=== PATIENT | female | born 1935 | race Caucasian/White ===

== ENCOUNTER 2016-09-19 18:29 | Emergency (ER) | payer MEDICARE ==
[~2016-09-19] VITALS: Ht 167.6 cm; Wt 61.3 kg
[~2016-09-19 18:29] MED LIST: ALPRAZOLAM0.5 MG PO; AMBIEN10 MG OR; BACTRIM DS1 TAB PO; CALCIUM500 M5 PO; CIPRO500 MG OR; CITALOPRAM10 MG PO; CITALOPRAM20 MG OR; DITROPAN XL5 MG OR; DITROPAN XL5 MG PO; FLUARIX QUADRIV1 INJ IM; LEVOTHYROXIN50 MC1 OR; LEVOTHYROXIN50 MC1 PO; LOPID600 MG OR; LOPID600 MG PO; LORTAB 5 OR; LOTRISONE EX; METROCREAM0.75 % EX; MULTI VIT PO; PROZAC40 MG PO; TRIAMCINOLON0.11 EX; VITAMIN D35000 UNI1 PO
[2016-09-19 20:47] LABS: URINE BILIRUBIN - DIPSTICK NEGATIVE (NEGATIVE); URINE BLOOD DIPSTICK TRACE-INTACT (NEGATIVE); URINE CLARITY CLEAR; URINE COLOR YELLOW; URINE GLUCOSE - DIPSTICK NEGATIVE (NEGATIVE); URINE KETONE NEGATIVE (NEGATIVE); URINE NITRITE - DIPSTICK NEGATIVE (Negative); URINE PROTEIN - DIPSTICK NEGATIVE (NEG-TRACE); URINE SPECIFIC GRAVITY <=1.005; URINE UROBILINOGEN - DIPSTICK 0.2 E.U./dL (0.2)
[2016-09-19 20:48] LABS: URINE LEUK ESTERASE SMALL (NEGATIVE)
[2016-09-19 20:56] LABS: URINE BACTERIA RARE hpf; URINE SQUAMOUS EPITHELIAL CELL FEW EPI/hpf (0-FEW)
[2016-09-19] MEDS ORDERED: PYRIDIUM200 MG PO (21:27)
[2016-09-19] MEDS ORDERED: CIPROFLOXACN500 MG PO (21:27)
[2016-09-19 21:49] VITALS: BP 134/75
== END 2016-09-19 21:48 | disposition home or self-care (01) ==
LOC: ED 18:29
PROVIDERS: Emergency Medicine
DX: N39.0 Urinary tract infection, site not specified (principal); M19.90 Unspecified osteoarthritis, unspecified site; G89.29 Other chronic pain; M54.5 Low back pain; M54.2 Cervicalgia; M79.7 Fibromyalgia; Z87.440 Personal history of urinary (tract) infections

== ENCOUNTER 2018-06-08 18:25 | Emergency (ER) | payer MEDICARE ==
[~2018-06-08] VITALS: Ht 167.6 cm; Wt 64.0 kg
[~2018-06-08 18:25] MED LIST changes: +CIPROFLOXACN500 MG PO; +LEVOTHYROXIN50 MCG PO; +LEXAPRO10 MG PO; +PYRIDIUM200 MG PO; +VITAMIN D31000 UNI1 PO; -VITAMIN D35000 UNI1 PO
[2018-06-08 18:58] LABS: URINE BLOOD DIPSTICK SMALL (NEGATIVE); URINE COLOR YELLOW; URINE GLUCOSE - DIPSTICK NEGATIVE (NEGATIVE); URINE KETONE NEGATIVE (NEGATIVE); URINE PROTEIN - DIPSTICK TRACE mg/dL (NEG-TRACE); URINE SPECIFIC GRAVITY >=1.030; URINE UROBILINOGEN - DIPSTICK 0.2 E.U./dL (0.2)
[2018-06-08 19:04] LABS: URINE BILIRUBIN - DIPSTICK NEGATIVE (NEGATIVE); URINE LEUK ESTERASE SMALL (NEGATIVE); URINE NITRITE - DIPSTICK POSITIVE (Negative)
[2018-06-08 19:05] LABS: URINE BACTERIA FEW hpf; URINE SQUAMOUS EPITHELIAL CELL FEW EPI/hpf (0-FEW); URINE WBC 20-50 WBC/hpf (0-5)
[2018-06-08] MEDS ORDERED: LEVOTHYROXIN25 MC1 PO (19:12)
[2018-06-08] MEDS ORDERED: ESCITALOPRAM OX20 MG PO (19:13)
[2018-06-08] MEDS ORDERED: BACLOFEN10 MG PO (19:13)
[2018-06-08] MEDS ORDERED: LOPID600 MG PO (19:13)
[2018-06-08] MEDS ORDERED: CIPROFLOXACN500 MG PO (19:21)
[2018-06-08] MEDS ORDERED: PYRIDIUM200 MG PO (19:21)
[2018-06-08 19:28] VITALS: BP 132/81
== END 2018-06-08 19:28 | disposition home or self-care (01) ==
LOC: ED 18:25
PROVIDERS: Emergency Medicine
DX: N39.0 Urinary tract infection, site not specified (principal); B96.20 Unspecified Escherichia coli [E. coli] as the cause of diseases classified elsewhere; E03.9 Hypothyroidism, unspecified; F32.9 Major depressive disorder, single episode, unspecified; E78.00 Pure hypercholesterolemia, unspecified; Z85.3 Personal history of malignant neoplasm of breast; Z87.440 Personal history of urinary (tract) infections

== ENCOUNTER 2018-08-07 09:08 | Emergency (ER) | payer MEDICARE ==
[~2018-08-07] VITALS: Ht 167.6 cm; Wt 61.4 kg
[~2018-08-07 09:08] MED LIST changes: +BACLOFEN10 MG PO; +ESCITALOPRAM OX20 MG PO; +LEVOTHYROXIN25 MC1 PO
[2018-08-07 09:51] LABS: URINE BILIRUBIN - DIPSTICK NEGATIVE (NEGATIVE); URINE BLOOD DIPSTICK TRACE-LYSED (NEGATIVE); URINE COLOR YELLOW; URINE GLUCOSE - DIPSTICK NEGATIVE (NEGATIVE); URINE KETONE NEGATIVE (NEGATIVE); URINE NITRITE - DIPSTICK NEGATIVE (Negative); URINE PH 5.5 (4.5-8.0); URINE PROTEIN - DIPSTICK NEGATIVE (NEG-TRACE); URINE SPECIFIC GRAVITY 1.025; URINE UROBILINOGEN - DIPSTICK 0.2 E.U./dL (0.2)
[2018-08-07 09:52] LABS: URINE LEUK ESTERASE MODERATE (NEGATIVE)
[2018-08-07 09:53] LABS: URINE BACTERIA FEW hpf; URINE EPITHELIAL CELLS FEW EPI/hpf (0-FEW); URINE RBC 0-2 RBC/hpf (0-5)
[2018-08-07] MEDS ORDERED: BACTRIM DS1 TAB PO (09:57)
[2018-08-07] MEDS ORDERED: PYRIDIUM200 MG PO (09:57)
[2018-08-07 10:01] VITALS: BP 121/66
== END 2018-08-07 10:17 | disposition home or self-care (01) ==
LOC: ED 09:08
PROVIDERS: Emergency Medicine
DX: N39.0 Urinary tract infection, site not specified (principal); E03.9 Hypothyroidism, unspecified; E78.00 Pure hypercholesterolemia, unspecified; F32.9 Major depressive disorder, single episode, unspecified; B96.20 Unspecified Escherichia coli [E. coli] as the cause of diseases classified elsewhere; Z87.440 Personal history of urinary (tract) infections

== ENCOUNTER → 2018-08-24 | Outpatient (REF) | payer MEDICARE | END | disposition home or self-care (01) | LOC: BD 09:02 | PROVIDERS: ATTEND Nurse Practitioner Adult Health | DX: N95.1 Menopausal and female climacteric states (principal) ==

== ENCOUNTER 2020-02-06 06:16 | Day surgery (SDC) | payer MEDICARE ==
[~2020-02-06 06:16] MED LIST changes: +CITALOPRAM20 M1 PO; -ESCITALOPRAM OX20 MG PO
[2020-02-06 10:00] VITALS: BP 135/63
== END 2020-02-06 10:18 | disposition home or self-care (01) ==
LOC: ENDO 06:16 → ORM 08:00 → ENDO 08:00
PROVIDERS: ATTEND Surgery
PROC: 0DBL8ZX Excision of Transverse Colon, Via Natural or Artificial Opening Endoscopic, Diagnostic (ICD-10-PCS; principal; 2020-02-06)
PROC: 3E0H8GC Introduction of Other Therapeutic Substance into Lower GI, Via Natural or Artificial Opening Endoscopic (ICD-10-PCS; 2020-02-06)
DX: D12.3 Benign neoplasm of transverse colon (principal); K57.30 Diverticulosis of large intestine without perforation or abscess without bleeding; K64.4 Residual hemorrhoidal skin tags; K64.8 Other hemorrhoids; Z86.010 Personal history of colon polyps; Z11.59 Encounter for screening for other viral diseases

== ENCOUNTER 2020-07-30 07:02 | Day surgery (SDC) | payer MEDICARE ==
[~2020-07-30] VITALS: Ht 167.6 cm; Wt 56.7 kg
[~2020-07-30 07:02] MED LIST changes: -CITALOPRAM20 M1 PO; +VITAMIN C1000 MG PO
[2020-07-30 11:22] VITALS: BP 132/63
== END 2020-07-30 11:05 | disposition home or self-care (01) ==
LOC: ENDO 07:02 → ORM 08:45 → ENDO 11:05
PROVIDERS: ATTEND Surgery
PROC: 0DBL8ZX Excision of Transverse Colon, Via Natural or Artificial Opening Endoscopic, Diagnostic (ICD-10-PCS; principal; 2020-07-30)
PROC: 0DBN8ZX Excision of Sigmoid Colon, Via Natural or Artificial Opening Endoscopic, Diagnostic (ICD-10-PCS; 2020-07-30)
PROC: 3E0H8KZ Introduction of Other Diagnostic Substance into Lower GI, Via Natural or Artificial Opening Endoscopic (ICD-10-PCS; 2020-07-30)
DX: D12.3 Benign neoplasm of transverse colon (principal); K63.5 Polyp of colon; K57.30 Diverticulosis of large intestine without perforation or abscess without bleeding; K64.4 Residual hemorrhoidal skin tags; Z85.3 Personal history of malignant neoplasm of breast; Z20.822 Contact with and (suspected) exposure to COVID-19

== ENCOUNTER 2020-08-22 13:22 | Emergency (ER) | payer MEDICARE ==
[~2020-08-22] VITALS: Ht 167.6 cm; Wt 55.9 kg
[2020-08-22 15:00] LABS: HEMATOCRIT 40.6 % (37.0-47.0); HEMOGLOBIN 13.3 g/dl (12.0-16.0); IMMATURE GRANULOCYTES 0.4 % (0.0-5.0); MEAN CORPUSCULAR HGB 31.4 pG CALC (26.0-32.0); MEAN CORPUSCULAR HGB CONC 32.8 g/dL CAL (32.0-36.0); NEUT# 4.5 thou/uL (2.00-7.15); RED BLOOD COUNT 4.23 mill/uL (4.20-5.60); RED CELL DISTRI WIDTH 13.1 % (11.5-15.5)
[2020-08-22 15:01] LABS: URINE BILIRUBIN - DIPSTICK NEGATIVE (NEGATIVE); URINE BLOOD DIPSTICK NEGATIVE (NEGATIVE); URINE COLOR YELLOW; URINE GLUCOSE - DIPSTICK NEGATIVE (NEGATIVE); URINE KETONE NEGATIVE (NEGATIVE); URINE LEUK ESTERASE NEGATIVE (NEGATIVE); URINE NITRITE - DIPSTICK NEGATIVE (Negative); URINE PH 5.5 (4.5-8.0); URINE PROTEIN - DIPSTICK NEGATIVE (NEG-TRACE); URINE SPECIFIC GRAVITY 1.025; URINE UROBILINOGEN - DIPSTICK 0.2 E.U./dL (0.2)
[2020-08-22 15:14] LABS: ALBUMIN 4.6 g/dL (3.2-5.0); ALKALINE PHOSPHATASE 86 u/l (38-126); AMYLASE 82 u/l (30-110); ANION GAP 11 (6-22 (CALC)); BILIRUBIN, TOTAL 0.7 mg/dL (0.0-1.4); BUN 19 mg/dL (8-23); BUN/CREATININE RATIO 30 (12-20 (CALC)); CARBON DIOXIDE 28 mmol/l (22-30); CHLORIDE 103 mmol/l (95-108); CREATININE 0.6 mg/dL (0.5-1.0); GFR > 60 ML/MIN (>=60 (CALC)); GFR FOR AFR.AMER. > 60 ML/MIN (>=60 (CALC)); LIPASE 154 u/l (23-300); MAGNESIUM 2.1 mg/dL (1.6-2.3); POTASSIUM 3.6 mmol/l (3.5-5.1); SGOT/AST 27 u/l (9-36); SODIUM 138 mmol/l (137-146); TOTAL PROTEIN 7.8 g/dL (6.3-8.2)
[2020-08-22 15:25] LABS: ACT PARTIAL THROMBO TIME 22.5 SECONDS (20.0-32.5); PROTHROMBIN TIME 9.8 SECONDS (9.0-12.5)
[2020-08-22] MEDS ORDERED: IMODIUM2 MG PO (17:47)
[2020-08-22 17:54] VITALS: BP 149/71
== END 2020-08-22 18:00 | disposition home or self-care (01) ==
LOC: ED 13:22
DX: R19.7 Diarrhea, unspecified (principal); R10.31 Right lower quadrant pain; R94.31 Abnormal electrocardiogram [ECG] [EKG]; Z87.440 Personal history of urinary (tract) infections; T36.8X6A Underdosing of other systemic antibiotics, initial encounter; Z91.128 Patient's intentional underdosing of medication regimen for other reason
CPT/HCPCS: Q9967

== ENCOUNTER 2020-11-05 07:10 | Day surgery (SDC) | payer MEDICARE ==
[2020-11-05] VITALS (14 sets, daily range): BP systolic 87–127; BP diastolic 42–70
[~2020-11-05] VITALS: Ht 167.6 cm; Wt 54.0 kg
[~2020-11-05 07:10] MED LIST changes: +IMODIUM2 MG PO
--- NOTE | 2020-11-05 10:28 | NUR ---
PT ARRIVED TO ICU BED 1 VIA HOSPITAL BED ACCOMPANIED BY ANNETTERN AND POLLY MOORE;PT A&0 X3, ORIENTED TO ROOM AND CALL LIGHT SYSTEM;WT AND VS OBTAINED AT THIS TIME;PT ADMITTED FROM OR AFTER UNSUCCESSFUL INTUBATION, ADMITTED FOR OBSERVATION;PT DENIES ANY CURRENT PAIN BUT DOES REPORT NECK STIFFNESS, PAIN SCALE AND REPORTING EDUCATED;RESPIRATIONS EVEN AND UNLABORED ON O2 @ 3L HUMIDIFIED OXYGEN,CLEAR LUNG SOUNDS;NON-PRODUCTIVE COUGH NOTED;ABDOMEN SOFT ON PALPATION AND ACTIVE IN ALL 4 QUADRANTS,LAST BM 11/04/20;WEAK PEDAL PULSES;SKIN INTACT;CARDIAC MONITORING IN PLACE;#20G TO LAC INFUSING LR @ 75ML/HR,SITE APPEARS HEALTHY;SCD'S APPLIED;ALLERGY AND FALL BAND IN PLACE;PT DENIES ANY ADDITIONAL NEEDS AND IS ENCOURAGED TO CALL FOR ASSISTANCE IF NEEDED;FALL PRECAUTIONS IN PLACE WITH BED IN THE LOWEST POSITION AND CALL LIGHT IN REACH;WILL CONTINUE TO MONITOR
--- NOTE | 2020-11-05 11:01 | NUR ---
AT BEDSIDE DISCUSSING POC.
--- NOTE | 2020-11-05 12:50 | NUR ---
PT RESTING IN SEMI FOWLERS POSITION EATING LUNCH;RESPIRATIONS REMAIN EVEN AND UNLABORED ON RA;PT DENIES ANY CURRENT PAIN OR DISCOMFORTS;CARDIAC MONITORING IN PLACE;IV SITE PATENT INFUSING D5 1/2 NS @ 75ML/HR,SITE APPEARS HEALTHY;PT DENIES ANY ADDITIONAL NEEDS AND IS ENCOURAGED TO CALL FOR ASSISTANCE IF NEEDED;FALL PRECAUTIONS IN PLACE WITH BED IN THE LOWEST POSITION AND CALL LIGHT IN REACH;WILL CONTINUE TO MONITOR
--- NOTE | 2020-11-05 15:00 | NUR ---
PT RESTING IN SEMI FOWLERS POSITION;RESPIRATIONS EVEN AND UNLABORED ON RA;PT DENIES ANY CURRENT PAIN OR DISCOMFORTS;CARDIAC MONITORING IN PLACE SB 50'S;IV SITE PATENT INFUSING IVF WITH EASE PER ORDER;PT DENIES ANY ADDITIONAL NEEDS AND IS ENCOURAGED TO CALL FOR ASSISTANCE IF NEEDED;FALL PRECAUTIONS IN PLACE WITH CALL LIGHT IN REACH;WILL CONTINUE TO MONITOR
--- NOTE | 2020-11-05 18:00 | NUR ---
PT RESTING IN SEMI FOWLERS POSITION WATCHING TV;RESPIRATIONS EVEN AND UNLABORED ON RA;PT DENIES ANY CURRENT PAIN OR NEEDS;IV SITE PATENT;CARDIAC MONITORING IN PLACE AND VS REMAIN WNL;PT ENCOURAGED TO CALL FOR ASSISTANCE IF NEEDED;CALL LIGHT IN REACH;WILL CONTINUE TO MONITOR
--- NOTE | 2020-11-05 20:00 | NUR ---
[id number]: PATIENT IS AWAKE, ORIENTED X4, LAYS IN HIGH JUSTIN'S. NO ACUTE DISTRESS SHOWN. NURSE ASSESSMENT COMPLETED. NO COMPLAINTS OF PAIN. POC DISCUSSED. PATIENT ABLE TO WALK TO RESTROOM WITH STANDBY ASSIST, WASHED HER TEETH COMBED HER HAIR, APPLIED MOISTURIZER TO FACE, AND VOIDED YELLOW/CLEAR. REPLACED DRESSING TO LAC IV DUE TO BLOOD NOTED, IV IS INTACT, FLUSHES PROPERLY. PROVIDED ICED WATER. SR/ SB ON TELEMETRY. BP WNL, AFEBRILE, O2 SAT GREATER THAN 95%, PATIENT DENIES ANY SOB, NO RESPIRATORY DISTRESS NOTED. WATCHES TV. EDUCATED ON IS, PATIENT ABLE TO PROPERLY USE IT. CALL LIGHT WITHIN REACH.
--- NOTE | 2020-11-05 22:07 | NUR ---
PATIENT TOLERATES LOVENOX INJECTION. NO ACUTE DISTRESS SHOWN. NO COMPLAINTS OR NEEDS AT THIS TIME. BLANKET PROVIDED. SCD'S TAKEN OFF PER REQUEST. CALL LIGHT WITHIN REACH.
[2020-11-06] VITALS (11 sets, daily range): BP systolic 83–118; BP diastolic 41–77
--- NOTE | 2020-11-06 01:51 | NUR ---
PATIENT SLEEPS, NO ACUTE DISTRESS SHOWN. CALL LIGHT WITHIN REACH.
--- NOTE | 2020-11-06 05:48 | NUR ---
PATIENT LAYS IN HIGH JUSTIN'S, IS AWAKE, NO ACUTE DISTRES SHOWN. CALL LIGHT WITHIN REACH.
--- NOTE | 2020-11-06 07:47 | NUR ---
PT RESTING COMFORTABLY WITH EYES CLOSED. NO SIGNS OF DISTRESS AT THIS TIME. WILL REASSESS IN ONE HOUR.
--- NOTE | 2020-11-06 09:49 | NUR ---
RX FOR MAGIC MOUTHWASH CALLED IN TO [facility]. LIDOCAINE/MAALOX/BENADRYL 1:1:1 120ML TOTAL DIRECTIONS SWISH/SWALLOW 5ML Q6H PRN PER DR FOUNTAIN
[2020-12-23] MEDS ORDERED: MIRACLEMM PO (11:37)
== END 2020-11-06 11:38 | disposition home or self-care (01) ==
LOC: ORM 07:10 → ICU 10:24 → ORM 11-06 11:38
PROVIDERS: ATTEND Surgery
DX: D12.3 Benign neoplasm of transverse colon (principal); E03.9 Hypothyroidism, unspecified; J39.2 Other diseases of pharynx; J02.9 Acute pharyngitis, unspecified; Y84.8 Other medical procedures as the cause of abnormal reaction of the patient, or of later complication, without mention of misadventure at the time of the procedure; Y92.234 Operating room of hospital as the place of occurrence of the external cause; Z85.3 Personal history of malignant neoplasm of breast; Z53.09 Procedure and treatment not carried out because of other contraindication
CPT/HCPCS: J0131; J1100; J1650

== ENCOUNTER 2021-12-02 13:24 | Emergency (ER) | payer MEDICARE ==
[2021-12-02] VITALS (10 sets, daily range): BP systolic 104–131; BP diastolic 57–70
[~2021-12-02] VITALS: Ht 167.6 cm; Wt 59.0 kg
[~2021-12-02 13:24] MED LIST changes: +MIRACLEMM PO
[2021-12-02 14:54] LABS: HEMATOCRIT 42.6 % (37.0-47.0); HEMOGLOBIN 13.8 g/dl (12.0-16.0); IMMATURE GRANULOCYTES 0.1 % (0.0-5.0); MEAN CELL VOLUME 96.4 fL CALC (80.0-100.0); MEAN CORPUSCULAR HGB 31.2 pG CALC (26.0-32.0); MEAN CORPUSCULAR HGB CONC 32.4 g/dL CAL (32.0-36.0); NEUT# 6.61 thou/uL (2.00-7.15); RED BLOOD COUNT 4.42 mill/uL (4.20-5.60)
[2021-12-02 15:04] LABS: URINE BLOOD DIPSTICK LARGE (NEGATIVE); URINE COLOR ORANGE; URINE GLUCOSE - DIPSTICK 100 mg/dL (NEGATIVE); URINE KETONE 15 mg/dL (NEGATIVE); URINE PH 5.5 (4.5-8.0); URINE PROTEIN - DIPSTICK >=300 mg/dL (NEG-TRACE); URINE SPECIFIC GRAVITY >=1.030
[2021-12-02 15:09] LABS: URINE BILIRUBIN - DIPSTICK MODERATE (NEGATIVE); URINE EPITHELIAL CELLS MODERATE EPI/hpf (0-FEW); URINE LEUK ESTERASE MODERATE (NEGATIVE); URINE NITRITE - DIPSTICK POSITIVE (Negative); URINE RBC 25-50 RBC/hpf (0-5); URINE WBC 50-100 WBC/hpf (0-5)
[2021-12-02 15:10] LABS: URINE BACTERIA MANY hpf
[2021-12-02 16:59] LABS: GFR FOR AFR.AMER. > 60 ML/MIN (>=60 (CALC)); GFR OTHER RACES > 60 ML/MIN (>=60 (CALC))
[2021-12-02 18:23] LABS: ALBUMIN 4.3 g/dL (3.2-5.0); ALKALINE PHOSPHATASE 82 u/l (38-126); ANION GAP 10 (6-22 (CALC)); BUN 18 mg/dL (8-23); BUN/CREATININE RATIO 24 (12-20 (CALC)); CARBON DIOXIDE 29 mmol/l (22-30); CHLORIDE 105 mmol/l (95-108); CREATININE 0.7 mg/dL (0.5-1.0); GFR FOR AFR.AMER. > 60 ML/MIN (>=60 (CALC)); GFR OTHER RACES > 60 ML/MIN (>=60 (CALC)); LIPASE 126 u/l (23-300); POTASSIUM 3.9 mmol/l (3.5-5.1); SGOT/AST 25 u/l (9-36); SODIUM 140 mmol/l (137-146); TOTAL PROTEIN 7.2 g/dL (6.3-8.2)
[2021-12-02 18:27] LABS: BILIRUBIN, TOTAL 0.5 mg/dL (0.0-1.4)
[2021-12-02] MEDS ORDERED: PYRIDIUM200 MG PO (18:39)
[2021-12-02] MEDS ORDERED: KEFLEX500 MG PO (18:39)
== END 2021-12-02 18:58 | disposition home or self-care (01) ==
LOC: ED 13:24
PROVIDERS: Nurse Practitioner
DX: N39.0 Urinary tract infection, site not specified (principal); R19.7 Diarrhea, unspecified; F41.9 Anxiety disorder, unspecified; F32.A Depression, unspecified; B96.20 Unspecified Escherichia coli [E. coli] as the cause of diseases classified elsewhere
CPT/HCPCS: Q9967

== ENCOUNTER 2022-03-23 12:37 | Inpatient (IN) | payer MEDICARE ==
[2022-03-23] VITALS (20 sets, daily range): BP systolic 114–162; BP diastolic 52–88
[~2022-03-23] VITALS: Ht 30.5 cm; Wt 75.0 kg
[~2022-03-23 12:37] MED LIST changes: +KEFLEX500 MG PO
--- NOTE | 2022-03-23 12:44 | NUR ---
PT TO ROOM VIA EMS
[2022-03-23 13:09] LABS: HEMATOCRIT 44.2 % (37.0-47.0); HEMOGLOBIN 14.7 g/dl (12.0-16.0); IMMATURE GRANULOCYTES 0.1 % (0.0-5.0); MEAN CELL VOLUME 95.7 fL CALC (80.0-100.0); MEAN CORPUSCULAR HGB 31.8 pG CALC (26.0-32.0); MEAN CORPUSCULAR HGB CONC 33.3 g/dL CAL (32.0-36.0); NEUT# 12.08 thou/uL (2.00-7.15); RED BLOOD COUNT 4.62 mill/uL (4.20-5.60); RED CELL DISTRI WIDTH 13.8 % (11.5-15.5)
--- NOTE | 2022-03-23 13:12 | NUR ---
PATIENT BROUGHT IN BY EMS , THEY STATES SHE LIVES ALONE AND WAS FOUND BY HER NEIGHBOR ON THE FLOOR NEXT TO HER BED . lAST TIME THE NEIGHBOR SAW HER WAS WEDNESDAY. nO BRUISES OR INJURIES NOTED. pT APPEARED ALTERED MENTALLY , CONFUSED . VITALS STABLE . pt HAS A DNR
[2022-03-23 13:26] LABS: ALBUMIN 4.7 g/dL (3.2-5.0); CREATININE 1.2 mg/dL (0.5-1.0); POTASSIUM 3.8 mmol/l (3.5-5.1)
[2022-03-23 13:27] LABS: URINE BLOOD DIPSTICK MODERATE (NEGATIVE); URINE COLOR YELLOW; URINE GLUCOSE - DIPSTICK NEGATIVE (NEGATIVE); URINE KETONE >=80 mg/dL (NEGATIVE); URINE PROTEIN - DIPSTICK TRACE mg/dL (NEG-TRACE); URINE SPECIFIC GRAVITY 1.025; URINE UROBILINOGEN - DIPSTICK 0.2 E.U./dL (0.2)
[2022-03-23 13:29] LABS: URINE BILIRUBIN - DIPSTICK MODERATE (NEGATIVE); URINE LEUK ESTERASE SMALL (NEGATIVE); URINE NITRITE - DIPSTICK NEGATIVE (Negative)
[2022-03-23 13:34] LABS: BILIRUBIN, TOTAL 0.8 mg/dL (0.0-1.4); TOTAL PROTEIN 8.5 g/dL (6.3-8.2)
[2022-03-23 13:37] LABS: URINE SQUAMOUS EPITHELIAL CELL FEW EPI/hpf (0-FEW)
--- NOTE | 2022-03-23 14:02 | NUR ---
STRAIGHT CATH WAS DONE TO COLLECT URINE AND PT WAS PLACED ON A PURE WICK
--- NOTE | 2022-03-23 14:59 | NUR ---
PATIENT CAME BACK FROM CT , APPEAR CONFUSED, THE THING SHE IS SAYING ARE NOT REALLY COMPREHENSIBLE
--- NOTE | 2022-03-23 16:58 | NUR ---
PATIENT HAD A PRESSURE ULCER STAGE 1 IN THE LOWER BACK
--- NOTE | 2022-03-23 17:05 | NUR ---
1650 86 YEAR OLD FEMALE RECEIVRD TODAY FROM THE ED TO [facility] , FOR URINARY RETENTION. PT ARRIVES VIA STRETCHER ALERT ORIENTED TO HERSELF ONLY , PLAISANTLY CONFUSED,DENIES ANY PAIN OR DISCOMFORT , VSS NO SIGNS OF DITRESS NOTED AT THIS TIME FALL PRECAUTION INITIATED AND ONGOING, CONTINUE TO MONITOR PATIENT.
[2022-03-24] VITALS (8 sets, daily range): BP systolic 106–121; BP diastolic 45–56
[2022-03-24 05:05] LABS: MEAN CELL VOLUME 97.5 fL CALC (80.0-100.0); MEAN CORPUSCULAR HGB 31.8 pG CALC (26.0-32.0); MEAN CORPUSCULAR HGB CONC 32.6 g/dL CAL (32.0-36.0); RED BLOOD COUNT 3.62 mill/uL (4.20-5.60); RED CELL DISTRI WIDTH 14.1 % (11.5-15.5)
[2022-03-24 05:14] LABS: HEMATOCRIT 35.3 % (37.0-47.0); HEMOGLOBIN 11.5 g/dl (12.0-16.0)
[2022-03-24 05:24] LABS: ANION GAP 14 (6-22 (CALC)); BUN 33 mg/dL (8-23); BUN/CREATININE RATIO 46 (12-20 (CALC)); CHLORIDE 122 mmol/l (95-108); CREATININE 0.7 mg/dL (0.5-1.0); GFR FOR AFR.AMER. > 60 ML/MIN (>=60 (CALC)); GFR OTHER RACES > 60 ML/MIN (>=60 (CALC)); MAGNESIUM 2.4 mg/dL (1.6-2.3); POTASSIUM 3.6 mmol/l (3.5-5.1); SODIUM 151 mmol/l (137-146)
[2022-03-24 05:26] LABS: CARBON DIOXIDE 19 mmol/l (22-30)
[2022-03-24 09:18] LABS: SGOT/AST 68 u/l (9-36)
--- NOTE | 2022-03-24 22:10 | NUR ---
2000: Patient is more awake and alert today compare to yesterday she was very confused and desoriented. Patient denies any s/s of discomfort. rodriguez catheter in place and patent draining yellow urine. IVF infusing per order. will continue to monitor.
[2022-03-25 03:55] VITALS: BP 121/65
[2022-03-25 04:00] VITALS: BP 121/65
[2022-03-25 05:18] LABS: HEMATOCRIT 33.4 % (37.0-47.0); IMMATURE GRANULOCYTES 0.2 % (0.0-5.0); MEAN CELL VOLUME 95.7 fL CALC (80.0-100.0); MEAN CORPUSCULAR HGB 31.5 pG CALC (26.0-32.0); MEAN CORPUSCULAR HGB CONC 32.9 g/dL CAL (32.0-36.0); NEUT# 3.49 thou/uL (2.00-7.15); RED BLOOD COUNT 3.49 mill/uL (4.20-5.60)
[2022-03-25 05:35] LABS: BUN 19 mg/dL (8-23); BUN/CREATININE RATIO 31 (12-20 (CALC)); CHLORIDE 114 mmol/l (95-108); CPK 348 u/l (30-165); CREATININE 0.6 mg/dL (0.5-1.0); GFR FOR AFR.AMER. > 60 ML/MIN (>=60 (CALC)); GFR OTHER RACES > 60 ML/MIN (>=60 (CALC)); POTASSIUM 3.1 mmol/l (3.5-5.1); SODIUM 144 mmol/l (137-146)
[2022-03-25 05:37] LABS: ANION GAP 9 (6-22 (CALC)); CARBON DIOXIDE 24 mmol/l (22-30)
[2022-03-25 11:23] VITALS: BP 120/62
[2022-03-25 17:04] VITALS: BP 129/68
--- NOTE | 2022-03-25 19:15 | NUR ---
PT IN BED, LAYING ON RIGHT SIDE. PT ALERT AND ORIENTATED X3. BREATHING EVEN AND NON-LABORED, NO OXYGEN IN PLACE. PT ALERT AND ORIENTATED X3. ABDOMEN NON DISTENDED, SOFT WITH ACTIVE BOWEL SOUNDS X4. REPORTED MULTIPLE BOWEL MOVEMENTS DURING DAY SHIFT. IV SITE APPEARS HEALTHY, FLUSHES WELL, NO REPORTED PAIN. STAGE 1 P[RESSURE ULCER ON LOWER BACK, IN REPORT WAS TOLD IT WAS PRESENT AT ADMISSION. PT DENIES PAIN OR ANY NEEDS AT THIS TIME. CALL LUGT IN REACH AT THIS TIME, ALL SAFETY PRECAUTIONS IN PLACE AT THIS TIME.
[2022-03-25 19:39] VITALS: BP 125/60
[2022-03-26 00:11] VITALS: BP 126/69
--- NOTE | 2022-03-26 00:30 | NUR ---
PT SLEEPING IN ROOM. BREATHING REMAINS THE SAME. PT DENIES ANY NEEDS AT THIS TIME. CALL LIGHT IN REACH, ALL SAFETY PRECAUTIONS IN PLACE AT THIS TIME.
[2022-03-26 04:14] VITALS: BP 142/79
--- NOTE | 2022-03-26 04:43 | NUR ---
PT SLEEPING IN BED. BREATHING REMAINS THE SAME. IV SITE APPEARS HEALTHY. PT DENIES ANY NEEDS AT THIS TIME. CALL LIGHT IN REACH, ALL SAFETY PRECAUTIONS IN PLACE AT THIS TIME.
[2022-03-26 06:21] LABS: HEMATOCRIT 34.3 % (37.0-47.0); HEMOGLOBIN 11.6 g/dl (12.0-16.0); IMMATURE GRANULOCYTES 0.3 % (0.0-5.0); MEAN CORPUSCULAR HGB 32.1 pG CALC (26.0-32.0); MEAN CORPUSCULAR HGB CONC 33.8 g/dL CAL (32.0-36.0); NEUT# 3.44 thou/uL (2.00-7.15); RED BLOOD COUNT 3.61 mill/uL (4.20-5.60); RED CELL DISTRI WIDTH 13.6 % (11.5-15.5)
[2022-03-26 06:35] LABS: ANION GAP 10 (6-22 (CALC)); BUN 13 mg/dL (8-23); BUN/CREATININE RATIO 24 (12-20 (CALC)); CARBON DIOXIDE 25 mmol/l (22-30); CHLORIDE 110 mmol/l (95-108); CREATININE 0.5 mg/dL (0.5-1.0); GFR FOR AFR.AMER. > 60 ML/MIN (>=60 (CALC)); GFR OTHER RACES > 60 ML/MIN (>=60 (CALC)); POTASSIUM 3.1 mmol/l (3.5-5.1); SODIUM 141 mmol/l (137-146)
[2022-03-26 06:44] VITALS: BP 141/75
--- NOTE | 2022-03-26 08:41 | NUR ---
PT RESTING IN HIGH FOWLERS POSITION. A/OX3 ASSESMENT AND VS COMPLETED. PT DENIES ADDITIONAL NEEDS AT THE TIME IV SITE NOTED. PT URINE CATH NOTED. PT SAFETY PRECAUTIONS IN PLACE WITH CALL LIGHT IN REACH .
[2022-03-26 11:13] VITALS: BP 150/94
--- NOTE | 2022-03-26 12:06 | NUR ---
PT DENIES ADDITIONAL NEEDS AT THE TIME .
[2022-03-26] MEDS ORDERED: ALPRAZOLAM0.5 MG PO (12:21)
[2022-03-26] MEDS ORDERED: AMOX/K CLAV875 M1 PO (12:22)
--- NOTE | 2022-03-26 16:43 | NUR ---
Discharge instructions given. Patient verbalizes understanding of same. Discharged in stable condition via Wheelchair to [facility] with staff. All belongings sent with pt. IV REMOVED . CATHETER IN PLACE.
== END 2022-03-26 16:30 | DRG 690 ==
LOC: ED 12:37 → ED-I 15:10 → ED 15:32 → MS2 15:33
PROVIDERS: Family Medicine; Nurse Practitioner; ADMIT Internal Medicine; ATTEND Internal Medicine
PROC: 0T9B70Z Drainage of Bladder with Drainage Device, Via Natural or Artificial Opening (ICD-10-PCS; principal; 2022-03-23)
DX: N39.0 Urinary tract infection, site not specified (principal); M62.82 Rhabdomyolysis; R33.9 Retention of urine, unspecified; N13.30 Unspecified hydronephrosis; R41.0 Disorientation, unspecified; E87.6 Hypokalemia; E86.0 Dehydration; F41.9 Anxiety disorder, unspecified; F32.A Depression, unspecified; E03.9 Hypothyroidism, unspecified; H04.129 Dry eye syndrome of unspecified lacrimal gland; B96.89 Other specified bacterial agents as the cause of diseases classified elsewhere; S30.810A Abrasion of lower back and pelvis, initial encounter; X58.XXXA Exposure to other specified factors, initial encounter; Z85.3 Personal history of malignant neoplasm of breast; Z87.440 Personal history of urinary (tract) infections; Z91.81 History of falling
CPT/HCPCS: J1650; Q9967

== ENCOUNTER 2022-04-04 19:32 | Emergency (ER) | payer MEDICARE ==
[~2022-04-04] VITALS: Ht 167.6 cm; Wt 55.0 kg
[~2022-04-04 19:32] MED LIST changes: +AMOX/K CLAV875 M1 PO
[2022-04-04 19:39] VITALS: BP 135/73
[2022-04-04 19:45] VITALS: BP 125/69
[2022-04-04 20:00] VITALS: BP 138/71
[2022-04-04 20:45] LABS: HEMATOCRIT 36.7 % (37.0-47.0); IMMATURE GRANULOCYTES 0.2 % (0.0-5.0); MEAN CELL VOLUME 96.6 fL CALC (80.0-100.0); MEAN CORPUSCULAR HGB 31.6 pG CALC (26.0-32.0); MEAN CORPUSCULAR HGB CONC 32.7 g/dL CAL (32.0-36.0); NEUT# 5.43 thou/uL (2.00-7.15); RED BLOOD COUNT 3.8 mill/uL (4.20-5.60); RED CELL DISTRI WIDTH 13.9 % (11.5-15.5)
[2022-04-04 20:56] LABS: ALBUMIN 3.8 g/dL (3.2-5.0); ALKALINE PHOSPHATASE 80 u/l (38-126); BUN 16 mg/dL (8-23); BUN/CREATININE RATIO 21 (12-20 (CALC)); CARBON DIOXIDE 25 mmol/l (22-30); CHLORIDE 103 mmol/l (95-108); CREATININE 0.7 mg/dL (0.5-1.0); GFR FOR AFR.AMER. > 60 ML/MIN (>=60 (CALC)); GFR OTHER RACES > 60 ML/MIN (>=60 (CALC)); SGOT/AST 31 u/l (9-36); SODIUM 137 mmol/l (137-146)
[2022-04-04 21:00] LABS: ANION GAP 13 (6-22 (CALC)); BILIRUBIN, TOTAL 0.1 mg/dL (0.0-1.4); POTASSIUM 4.4 mmol/l (3.5-5.1); TOTAL PROTEIN 6.2 g/dL (6.3-8.2)
[2022-04-04 21:08] LABS: URINE BILIRUBIN - DIPSTICK NEGATIVE (NEGATIVE); URINE BLOOD DIPSTICK TRACE-INTACT (NEGATIVE); URINE COLOR YELLOW; URINE GLUCOSE - DIPSTICK NEGATIVE (NEGATIVE); URINE KETONE NEGATIVE (NEGATIVE); URINE PROTEIN - DIPSTICK NEGATIVE (NEG-TRACE); URINE SPECIFIC GRAVITY <=1.005; URINE UROBILINOGEN - DIPSTICK 0.2 E.U./dL (0.2)
[2022-04-04 21:09] LABS: URINE LEUK ESTERASE SMALL (NEGATIVE); URINE NITRITE - DIPSTICK NEGATIVE (Negative)
[2022-04-04 21:19] LABS: URINE SQUAMOUS EPITHELIAL CELL FEW EPI/hpf (0-FEW)
[2022-04-04 21:20] LABS: URINE BACTERIA RARE hpf; URINE TRANSITIONAL EPI. CELLS FEW hpf
[2022-04-04] MEDS ORDERED: KEFLEX500 MG PO ×2 (21:34→21:53)
[2022-04-04 21:39] VITALS: BP 138/71
== END 2022-04-04 21:54 | disposition home or self-care (01) ==
LOC: ED 19:32
PROVIDERS: Family Medicine
PROC: 0T9B70Z Drainage of Bladder with Drainage Device, Via Natural or Artificial Opening (ICD-10-PCS; principal; 2022-04-04)
DX: R33.9 Retention of urine, unspecified (principal); N39.0 Urinary tract infection, site not specified; F41.9 Anxiety disorder, unspecified; F32.A Depression, unspecified

== ENCOUNTER 2022-12-20 12:54 | Observation (INO) | payer MEDICARE ==
[2022-12-20] VITALS (17 sets, daily range): BP systolic 119–159; BP diastolic 61–91
[~2022-12-20] VITALS: Ht 167.6 cm; Wt 58.4 kg
[2022-12-20 13:27] LABS: URINE BILIRUBIN - DIPSTICK NEGATIVE (NEGATIVE); URINE BLOOD DIPSTICK NEGATIVE (NEGATIVE); URINE COLOR YELLOW; URINE GLUCOSE - DIPSTICK NEGATIVE (NEGATIVE); URINE KETONE NEGATIVE (NEGATIVE); URINE LEUK ESTERASE TRACE (NEGATIVE); URINE PROTEIN - DIPSTICK NEGATIVE (NEG-TRACE); URINE SPECIFIC GRAVITY <=1.005; URINE UROBILINOGEN - DIPSTICK 0.2 E.U./dL (0.2)
[2022-12-20 13:28] LABS: URINE NITRITE - DIPSTICK NEGATIVE (Negative)
[2022-12-20 14:51] LABS: BASO% 0.3 % (0-3); EOS% 0.4 % (0-8); HEMOGLOBIN 12.2 g/dl (12.0-16.0); IMMATURE GRANULOCYTES 0.1 % (0.0-5.0); MEAN CELL VOLUME 95.1 fL CALC (80.0-100.0); MEAN CORPUSCULAR HGB 31.4 pG CALC (26.0-32.0); MONO% 6.6 % (2-13); NEUT# 5.31 thou/uL (2.00-7.15); NEUT% 74.6 % (42-76); RED BLOOD COUNT 3.89 mill/uL (4.20-5.60)
[2022-12-20 15:00] LABS: ALKALINE PHOSPHATASE 88 u/l (38-126); ANION GAP 10 (6-22 (CALC)); BILIRUBIN, TOTAL 0.8 mg/dL (0.02-1.3); BUN 12 mg/dL (8-23); BUN/CREATININE RATIO 16 (12-20 (CALC)); CARBON DIOXIDE 27 mmol/l (22-30); CHLORIDE 109 mmol/l (95-108); CREATININE 0.7 mg/dL (0.5-1.0); GFR FOR AFR.AMER. > 60 ML/MIN (>=60 (CALC)); GFR OTHER RACES > 60 ML/MIN (>=60 (CALC)); POTASSIUM 3.9 mmol/l (3.5-5.1); SGOT/AST 34 u/l (9-36); SODIUM 141 mmol/l (137-146); TOTAL PROTEIN 6.8 g/dL (6.3-8.2)
[2022-12-20 15:30] LABS: TSH, 3RD GENERATION 4.83 uIU/mL (0.47 - 4.68)
[2022-12-20] MEDS ORDERED: LEVOTHYROXIN50 MC1 PO (17:51)
[2022-12-21 05:08] VITALS: BP 119/65
[2022-12-21 07:33] VITALS: BP 151/75
[2022-12-21 11:10] VITALS: BP 130/71
== END 2022-12-21 13:06 | disposition home or self-care (01) ==
LOC: ED 12:54 → MS2 18:46
PROVIDERS: Family Medicine; Nurse Practitioner Family; ADMIT Internal Medicine; ATTEND Internal Medicine
DX: R41.82 Altered mental status, unspecified (principal); E03.9 Hypothyroidism, unspecified; F41.9 Anxiety disorder, unspecified; F32.A Depression, unspecified; Z87.440 Personal history of urinary (tract) infections; Z85.3 Personal history of malignant neoplasm of breast; Z63.4 Disappearance and death of family member
CPT/HCPCS: S0166

== ENCOUNTER 2023-02-08 12:37 | Observation (INO) | payer MEDICARE ==
[~2023-02-08] VITALS: Ht 167.6 cm; Wt 58.0 kg
[2023-02-08] VITALS (13 sets, daily range): BP systolic 131–166; BP diastolic 77–125
[2023-02-08] MEDS ORDERED: BUPROPION75 MG PO (12:52)
[2023-02-08] MEDS ORDERED: [UNRECOGNIZED DRUG - OTHER] PO (12:52)
[2023-02-08] MEDS ORDERED: MAGNESIUM200 M1 PO (12:52)
[2023-02-08 13:29] LABS: BASO% 0.1 % (0-3); EOS% 0.1 % (0-8); HEMATOCRIT 41.5 % (37.0-47.0); HEMOGLOBIN 13.7 g/dl (12.0-16.0); IMMATURE GRANULOCYTES 0.4 % (0.0-5.0); LYMPH% 4.9 % (15-41); MEAN CELL VOLUME 95.4 fL CALC (80.0-100.0); MEAN CORPUSCULAR HGB 31.5 pG CALC (26.0-32.0); MONO% 3.8 % (2-13); NEUT# 12.54 thou/uL (2.00-7.15); NEUT% 90.7 % (42-76); RED BLOOD COUNT 4.35 mill/uL (4.20-5.60); RED CELL DISTRI WIDTH 13.1 % (11.5-15.5)
--- NOTE | 2023-02-08 13:30 | NUR ---
PT SUPINE IN BED, ALERT AND ANSERS QUESTIONS APPROPRIATELY, NO SLURRED SPEECH OR FACIAL DROOP NOTED, AIRWAY PATENT, RESP EVEN AND NON LABORED, SKIN PALE, WARM, DRY. ABD FIRM, DISTENDED, BS HYPOACTIVE, PT DENIES CONSITPATION, STATES " LAST BM YESTERDAY"
[2023-02-08 13:31] LABS: URINE BILIRUBIN - DIPSTICK Negative (NEGATIVE); URINE BLOOD DIPSTICK Negative (NEGATIVE); URINE GLUCOSE - DIPSTICK Negative (NEGATIVE); URINE KETONE Negative (NEGATIVE); URINE LEUK ESTERASE Negative (NEGATIVE); URINE NITRITE - DIPSTICK Negative (Negative); URINE PH 5.5 (4.5-8.0); URINE PROTEIN - DIPSTICK Negative (NEG-TRACE); URINE SPECIFIC GRAVITY >=1.030; URINE UROBILINOGEN - DIPSTICK 0.2 E.U./dL (0.2)
[2023-02-08 13:33] LABS: URINE COLOR Yellow
--- NOTE | 2023-02-08 14:00 | NUR ---
NO CHANGE IN PT STATUS. VSS.
[2023-02-08 14:03] LABS: ALBUMIN 4.2 g/dL (3.2-5.0); ALKALINE PHOSPHATASE 121 u/l (38-126); BILIRUBIN, TOTAL 0.7 mg/dL (0.02-1.3); BUN 14 mg/dL (8-23); BUN/CREATININE RATIO 21 (12-20 (CALC)); CHLORIDE 107 mmol/l (95-108); CREATININE 0.7 mg/dL (0.5-1.0); GFR FOR AFR.AMER. > 60 ML/MIN (>=60 (CALC)); GFR OTHER RACES > 60 ML/MIN (>=60 (CALC)); LIPASE 28 u/l (23-300); POTASSIUM 3.7 mmol/l (3.5-5.1); SGOT/AST 55 u/l (9-36); SODIUM 141 mmol/l (137-146); TOTAL PROTEIN 7.5 g/dL (6.3-8.2)
[2023-02-08 14:15] LABS: ANION GAP 17 (6-22 (CALC)); CARBON DIOXIDE 21 mmol/l (22-30)
--- NOTE | 2023-02-08 15:18 | NUR ---
SYLVIA - SON ON THE PHONE STATES " MOM GETS CONFUSED WHEN SHE IS OFF OF HER MEDICATION AND FROM CONVERSATION WITH NEIGHBORS PT HASN'T BEEN TAKING HER MEDICINE. JAMILBILY LOOKING FOR PLACEMENT FOR CUSTODIAL , PLEASE CONTACT SYLVIA [phone]
--- NOTE | 2023-02-08 16:00 | NUR ---
PT AWAKE, COOPERATIVE WITH CARE, NO COMPLAINTS VOICED. VSS.
--- NOTE | 2023-02-08 17:23 | NUR ---
PT REPOSITIONED IN BED FOR COMFORT. VSS.
--- NOTE | 2023-02-08 18:30 | NUR ---
PT ARRIVED TO [facility] FROM ER, REPORT RECEIVED. PT IS ALERT AND ORIENTED X3 WITH CONFUSION AT TIMES. PT HAS NO C/O PAIN AT THIS TIME. PT HAS TELE ON WITH ALL LEADS ATTACHED. IV SITE # 20 LAC CLEAN AND INTACT. PT HAS CALL LIGHT WITHIN REACH AND SAFETY MEASURES IN PLACE AT THIS TIME.
--- NOTE | 2023-02-08 20:00 | NUR ---
PATIENT RESTING IN BED AT THIS TIME WITH HOB ELEVATED. AWAKE ALERT AND ORIENTEDX3. PATIENT WITH SEVERE SHAKES AND APPEARS QUITE ANXIOUS. PATIENT ADMITTED FROM HOME TODAY AFTER SON SYLVIA CALLED FOR WELLNESS CHECK WHEN HE COULD NOT CONTACT HIS MOTHER BY PHONE. PATIENT FOUND ON THE FLOOR AND BROUGHT TO ER BY EMS. PATIENT DOES LIVE ALONE. SPOKE WITH HER SON SYLVIA PARRISH-HE LIVES IN [place] AND STATES THAT HE CALLS HER DAILY-BECAME CONCERNED WHEN SHE DIDN'T ANSWER HER PHONE. STATES THAT HE WOULD LIKE TO LOOK INTO POSSIBLE PRISON OR REHAB FOR HIS MOTHER AND CONSULT FOR CASE MANAGEMENT PLACED. IV SITE TO LEFT AC-IVF NS HUNG AND INFUSING AT 80CC/HR. SITE IS HEALTHY AT THIS TIME. TELE MONITOR IN PLACE. PUREWICK IN PLACE BUT NO URINE YET. PATIENT WITH HX OF FRFEQUENT UTI'S & URINE RETENSION. STATES THAT SHE HAD SMALL BM TODAY. LUNGS ARE CLEAR. ABD IS SOFT WITH ACTIVE BS. NO PERIPHERAL EDEMA NOTED. ORIENTED TO ROOM AND SURROUNDINGS. INSTRUCTED ON USE OF NURSE CALL LIGHT SYSTEM AND TV REMOTE. ASSISTED PATIENT WITH HEALTHY CHOICE TURKEY DINNER PT IS SHAKING TOO MUCH TO FEED HERSELF. TAKING PO FLUIDS WITHOUT ANY DIFFICULTY SWALLOWING, SAFETY PRECAUTIONS REINFORCED. BED ALARM IN PLACE FOR PATIENT SAFETY. CALL LIGHT IN REACH. WILL CONT TO MONITOR.
--- NOTE | 2023-02-09 00:31 | NUR ---
PATIENT RESTING IN BED WITH EYES CLOSED AT THIS TIME. RESPS ARE EVEN AND UNLABORED. IVF PATENT AND INFUSING VIA LAC AT 80CC/HR. PATIENT APPARENTLY REM BRENDAN PUREWICK AND FOUND ON THE FLOOR. BED ALARM IN PLACE FOR PATIENT SAFETY. CALL LIGHT IN REACH. WILL CONT TO MONITOR,
--- NOTE | 2023-02-09 04:06 | NUR ---
YPATIENT RESTING IN BED-CONFUSED TO PLACE AND TIME. REORIENTED PRETTY EASILY. IVF PATENT ANDINFUSING VIA RAC AT 80CC/HR. CALL LIGHT IN REACH. WILL CONT TO MONITOR.
[2023-02-09 04:43] VITALS: BP 167/82
[2023-02-09 06:05] LABS: HEMATOCRIT 37.1 % (37.0-47.0); HEMOGLOBIN 12.5 g/dl (12.0-16.0); MEAN CELL VOLUME 93.7 fL CALC (80.0-100.0); MEAN CORPUSCULAR HGB 31.6 pG CALC (26.0-32.0); MEAN CORPUSCULAR HGB CONC 33.7 g/dL CAL (32.0-36.0); RED BLOOD COUNT 3.96 mill/uL (4.20-5.60); RED CELL DISTRI WIDTH 13.3 % (11.5-15.5)
[2023-02-09 06:15] VITALS: BP 155/79
[2023-02-09 06:38] LABS: ANION GAP 13 (6-22 (CALC)); BUN 13 mg/dL (8-23); BUN/CREATININE RATIO 19 (12-20 (CALC)); CALCULATED LDLCHOLESTEROL 92 mg/dL (62-129 (CALC)); CARBON DIOXIDE 24 mmol/l (22-30); CHLORIDE 109 mmol/l (95-108); CHOLESTEROL HDL RATIO 4.5 (<4.4 (CALC)); CREATININE 0.7 mg/dL (0.5-1.0); GFR FOR AFR.AMER. > 60 ML/MIN (>=60 (CALC)); GFR OTHER RACES > 60 ML/MIN (>=60 (CALC)); HDL CHOLESTEROL 41 mg/dL (39.0-59.0); POTASSIUM 3.6 mmol/l (3.5-5.1); SODIUM 142 mmol/l (137-146); TOTAL CHOLESTEROL 185 mg/dl (0-199); TOTAL TRIGLYCERIDES 259 mg/dl (0-149); VLDL CHOLESTROL 52 mg/dl (0-48 (CALC))
--- NOTE | 2023-02-09 08:00 | NUR ---
PT IN BED WITH HOB UP , ALERT AND ORIENTED TO SELF AND PLACE BUT HAVING HALLUCINATIONS, SAME YESTERDAY; PROVIDER IS AWARE. PT IV TO LAC CLEAN AND INTACT WITH NS @ 80 ML/HR INFUSING. PT LUNGS CLEAR AND ABD SOFT WITH ACTIVE BS. PT HAS PUREWICK ON DRAINING CLEAR, YELLOW URINE. PT HAS CALL LIGHT WITHIN REACH AND ALL SAFETY MEASURES IN PLACE AT THIS TIME.
--- NOTE | 2023-02-09 11:00 | NUR ---
BLADDER SCAN DONE PER DR. GOODEN. 1100 AVERAGE ON BLADER SCAN AFTER 3 READINGS. AFTER PALPATING PT BLADDER SHE VOICED THE NEED TO URINATE. PT WAS ADDISTED TO BEDSIDE COMMODE WITH 700 ML URINE OUTPUT, PROVIDER IS AWARE. ORDER FOR JAIMES WAS D/C'D. PT HAS CALL LIGHT WIHTIN REACH AND ALL SAFETY MEASURES IN PLACE.
--- NOTE | 2023-02-09 12:00 | NUR ---
PT IN BED WITH HOB UP, PT IS EATING LUNCH WITH ASSISTANCE. PT CONTINUES TO HAVE HALLUCINATIONS, SEEING CATS IN RM THAT ARE NOT THERE. PT HAS CALL LIGHT WIBoufIN REACH AND ALL SAFETY MEASURES IN PLACE AT THIS TIME.
[2023-02-09 15:18] VITALS: BP 170/84
--- NOTE | 2023-02-09 16:00 | NUR ---
PT IN BED RESTING, OPENS EYES TO VERBAL STIMULI. PT HAS NO CHANGE IN STATUS AT THIS TIME. PT HAS NO C/O PAIN AT THIS TIME.
--- NOTE | 2023-02-09 20:00 | NUR ---
PATIENT AWAKE AND ALERT RESTING IN BED-PATIENT STATES THAT SHE HAS THE DRY HEEVES. NO VOMITTING. OFFERED HER SOME GINGERALE BUT SHE STATES THAT SHE JUIST WANTS SOME CRACKERS. PATIENT ALERT AND ORIENTED TO PERSON, PLACE, KNOW HER BIRTHDATE. CONT TO HAVE SEVERE SHAKES AND TREMORS OF THE HANDS AND ARMS. IVF PATENT AND INFUSING VIA LAC SITE AT 80CC/HR. DENIES ANY PAIN AT THIS TIME. BED ALARM IN PLACE FOR PATIENT SAFETY. SAFETY PRECAUTIONS REINFORCED WITH PATIENT. CALL LIGHT IN REACH. WILL CONT TO MONITOR.
[2023-02-09 20:21] VITALS: BP 170/84
--- NOTE | 2023-02-10 00:03 | NUR ---
PATIENT RESTING IN BED-INCONT OF LARGE AMT OF URINE. ASSISTED OOB TO BSC AND VOIDED 600CC OF YELLOW URINE. ASSISTED PATIENT W2ITH PERSONEL CARE AND LINENS WERE CHANGED. ASSISTED BACK TO BED. PATIENT IS VERY RIGID WHEN ASSISTING HER OOB. BED ALARM IN PLACE FOR PATIENT SAFETY, CALL LIGHTIN REACH. WILL CONT TO MONITOR.
--- NOTE | 2023-02-10 04:08 | NUR ---
PATIENT IS CALLING OUT AND CONFUSED TO TIME AND PLACE. REORIENTED EASILY AND APOLOGENTC FOR CALLING OUT. WAS LOOKING FOR HER ROOM AND HER PHONE. REPOSITIONED IN BED AND LABS WERE DRAWN. IVF PATENT AND INFUSING VIA LEFT AC SITE AT 80CC/HR. BED ALARM IN PLACE FOR PATIENT SAFETY. SAFETY PRECAUTIONS REINFORCED. CALL LIGHT IN REACH. WILL CONT TO MONITOR.
[2023-02-10 04:19] LABS: BASO% 0.2 % (0-3); EOS% 1.2 % (0-8); HEMOGLOBIN 12.6 g/dl (12.0-16.0); MEAN CELL VOLUME 93.7 fL CALC (80.0-100.0); MEAN CORPUSCULAR HGB 31.9 pG CALC (26.0-32.0); MEAN CORPUSCULAR HGB CONC 34.1 g/dL CAL (32.0-36.0); MONO% 6.7 % (2-13); NEUT# 7.79 thou/uL (2.00-7.15); NEUT% 77.9 % (42-76); RED BLOOD COUNT 3.95 mill/uL (4.20-5.60); RED CELL DISTRI WIDTH 13.4 % (11.5-15.5)
[2023-02-10 04:29] LABS: ALBUMIN 3.8 g/dL (3.2-5.0); ALKALINE PHOSPHATASE 125 u/l (38-126); ANION GAP 11 (6-22 (CALC)); BILIRUBIN, TOTAL 0.5 mg/dL (0.02-1.3); BUN 10 mg/dL (8-23); BUN/CREATININE RATIO 16 (12-20 (CALC)); CARBON DIOXIDE 23 mmol/l (22-30); CHLORIDE 110 mmol/l (95-108); CREATININE 0.6 mg/dL (0.5-1.0); GFR FOR AFR.AMER. > 60 ML/MIN (>=60 (CALC)); GFR OTHER RACES > 60 ML/MIN (>=60 (CALC)); MAGNESIUM 2.1 mg/dL (1.6-2.3); POTASSIUM 3.1 mmol/l (3.5-5.1); SGOT/AST 45 u/l (9-36); SODIUM 142 mmol/l (137-146); TOTAL PROTEIN 6.8 g/dL (6.3-8.2)
[2023-02-10 04:34] VITALS: BP 159/91
--- NOTE | 2023-02-10 07:00 | NUR ---
SHIFT CHANGE REPORT, PT RESTING IN BED IN HALLWAYS DUE TO ACTIVE "CODE ROM" AT THIS TIME, NO C/O DISCOMFORT, IVF INFUSING, WILL CONTINUE TO MONITOR.
[2023-02-10 08:09] VITALS: BP 161/90
--- NOTE | 2023-02-10 12:00 | NUR ---
PT IS ALERT AND ORIENTED BUT HALUCINATING BY TALKING TO INVISIBLE PEOPLE AND ADDRESSING STAFF BY NAMES OF PEOPLE FAMILIAR TO HER. BED ALARM ACTIVATED AND CALL MORRIS IN REACH.
[2023-02-10 16:01] VITALS: BP 158/91
--- NOTE | 2023-02-10 16:33 | NUR ---
DIFFICULTY STANDING AND TRANSFERRING FROM BED TO COMMODE, MAX ASSISTANCE NEEDED FOR TRANSFERS, EXHIBITS GROSS TREMORS DURING ANY ACTIVITY REQUIRING MOCEMENTS OF HANDS AND ARMS.
[2023-02-10 19:20] VITALS: BP 143/71
--- NOTE | 2023-02-10 23:21 | NUR ---
RECEIVED BEDSIDE REPORT AT START OF SHIFT. PT LYING IN BED WITH HOB ELEVATED. ALERT NOT ORIENTED TO DATE OR PLACE. KNOWS HER BIRTHDAY. ALERT AND ORIENTED TO SELF. CONFUSED WITH HALLUCINATING SEEING "A BOY NEXT TO HER BED" AMANUEL FLUIDS WELL. DIET FAIR. BED ALARM ON. USING CALL LIGHT AT TIMES. VOIDING ON COMMODE WITH ASSIST/SUPERVISION. SAFETY PRECAUTIONS MAINTAINED. SON CALLED FROM [place] AND WAS GIVEN AN UPDATE .
[2023-02-11 04:05] VITALS: BP 152/92
--- NOTE | 2023-02-11 04:53 | NUR ---
PT SLEPT IN SHORT INTERVALS. VERY CONFUSED. UP TO COMMODE MANY TIMES. BED ALARM ON FOR SAFETY. AMANUEL PO FLUIDS WELL. EASILY REDIRECTED. SAFETY PRECAUTIONS MAINTAINED. CALL LIGHT IN HAND.
[2023-02-11 05:54] LABS: BASO% 0.3 % (0-3); EOS% 2.3 % (0-8); HEMATOCRIT 40.3 % (37.0-47.0); HEMOGLOBIN 13.6 g/dl (12.0-16.0); IMMATURE GRANULOCYTES 0.5 % (0.0-5.0); LYMPH% 13.1 % (15-41); MEAN CELL VOLUME 94.8 fL CALC (80.0-100.0); MEAN CORPUSCULAR HGB CONC 33.7 g/dL CAL (32.0-36.0); MONO% 7.2 % (2-13); NEUT# 8.5 thou/uL (2.00-7.15); NEUT% 76.6 % (42-76); RED BLOOD COUNT 4.25 mill/uL (4.20-5.60); RED CELL DISTRI WIDTH 13.5 % (11.5-15.5)
[2023-02-11 06:12] LABS: ALBUMIN 4.2 g/dL (3.2-5.0); ALKALINE PHOSPHATASE 136 u/l (38-126); ANION GAP 15 (6-22 (CALC)); BILIRUBIN, TOTAL 0.7 mg/dL (0.02-1.3); BUN 11 mg/dL (8-23); BUN/CREATININE RATIO 15 (12-20 (CALC)); CARBON DIOXIDE 22 mmol/l (22-30); CHLORIDE 108 mmol/l (95-108); CREATININE 0.7 mg/dL (0.5-1.0); GFR FOR AFR.AMER. > 60 ML/MIN (>=60 (CALC)); GFR OTHER RACES > 60 ML/MIN (>=60 (CALC)); MAGNESIUM 2.1 mg/dL (1.6-2.3); POTASSIUM 3.4 mmol/l (3.5-5.1); SGOT/AST 64 u/l (9-36); SODIUM 141 mmol/l (137-146); TOTAL PROTEIN 7.5 g/dL (6.3-8.2)
[2023-02-11 06:56] VITALS: BP 171/85
--- NOTE | 2023-02-11 07:00 | NUR ---
RECEIVE REPORT FROM SERGIO
[2023-02-11 08:00] VITALS: BP 136/82
--- NOTE | 2023-02-11 08:00 | NUR ---
PATIENT ALERT AND ORIENTED X1. REST IN BED WITH EYES CLOSED. TELE MONITOR ON. PATIENT DOES NOT REFER TO PAIN OR DISCOMFORT AT THE MOMENT. PT IS EDUCATED ABOUD MEDICATIONS AND NURSING PLAN FOR TODAY. PT REFER UNDERSTAND. SAFETY AND FALL PRECAUTIONS IN PLACE. CALL LIGHT WITHIN IN REACH.
[2023-02-11 09:32] VITALS: BP 136/82
[2023-02-11] MEDS ORDERED: DONEPEZIL HYDROC5 MG PO (10:38)
[2023-02-11] MEDS ORDERED: QUETIAPINE FUMA25 MG PO (10:38)
[2023-02-11] MEDS ORDERED: BUPROPION HCL150 MG PO (10:39)
[2023-02-11] MEDS ORDERED: LEVOTHYROXIN50 MC1 PO (10:39)
[2023-02-11] MEDS ORDERED: OMNICEF300 MG PO (10:40)
[2023-02-11] MEDS ORDERED: LOSARTAN POTASS25 MG PO (10:43)
[2023-02-11 12:08] VITALS: BP 136/82
--- NOTE | 2023-02-11 12:15 | NUR ---
PATIENT STABLE AT THE TIME OF THIS NOTE. IT IS OBSERVED RESTING IN THE BED. DISCHARGE PLAN TODAY FOR RETIREMENT. SAFETY AND FALL PRECAUTIONS IN PLACE. CALL LIGHT WITHIN IN REACH.
--- NOTE | 2023-02-11 15:10 | NUR ---
Discharge instructions given. Patient verbalizes understanding of same. Discharged in stable condition via Wheelchair to *Other with staff. All belongings sent with pt.
== END 2023-02-11 15:15 ==
LOC: ED 12:37 → ED-I 15:53 → ED 16:37 → MS2 16:38
PROVIDERS: Nurse Practitioner; Nurse Practitioner Family; ADMIT Student in an Organized Health Care Education/Training Program; ATTEND Student in an Organized Health Care Education/Training Program
DX: G31.83 Neurocognitive disorder with Lewy bodies (principal); F02.82 Dementia in other diseases classified elsewhere, unspecified severity, with psychotic disturbance; J18.9 Pneumonia, unspecified organism; M62.82 Rhabdomyolysis; I10 Essential (primary) hypertension; F41.9 Anxiety disorder, unspecified; F32.A Depression, unspecified; E03.9 Hypothyroidism, unspecified; Z87.440 Personal history of urinary (tract) infections; T43.296A Underdosing of other antidepressants, initial encounter; Z91.128 Patient's intentional underdosing of medication regimen for other reason; Z85.3 Personal history of malignant neoplasm of breast; Z91.81 History of falling; Z60.2 Problems related to living alone
CPT/HCPCS: J1650

== ENCOUNTER 2023-06-21 13:28 | Emergency (ER) | payer MEDICARE ==
[~2023-06-21] VITALS: Ht 167.6 cm; Wt 58.9 kg
[~2023-06-21 13:28] MED LIST changes: +BUPROPION HCL150 MG PO; +BUPROPION75 MG PO; +DONEPEZIL HYDROC5 MG PO; +LOSARTAN POTASS25 MG PO; +MAGNESIUM200 M1 PO; +OMNICEF300 MG PO; +QUETIAPINE FUMA25 MG PO; +[UNRECOGNIZED DRUG - OTHER] PO
[2023-06-21 15:17] LABS: URINE BILIRUBIN - DIPSTICK Negative (NEGATIVE); URINE BLOOD DIPSTICK Trace-intact (NEGATIVE); URINE GLUCOSE - DIPSTICK Negative (NEGATIVE); URINE KETONE Negative (NEGATIVE); URINE NITRITE - DIPSTICK Negative (Negative); URINE PROTEIN - DIPSTICK Negative (NEG-TRACE); URINE SPECIFIC GRAVITY 1.025; URINE UROBILINOGEN - DIPSTICK 0.2 E.U./dL (0.2)
[2023-06-21 15:25] VITALS: BP 144/74
[2023-06-21 15:28] LABS: URINE COLOR Yellow; URINE LEUK ESTERASE Moderate (NEGATIVE)
[2023-06-21 15:30] VITALS: BP 139/73
[2023-06-21 15:41] LABS: URINE SQUAMOUS EPITHELIAL CELL FEW EPI/hpf (0-FEW); URINE WBC 20-50 WBC/hpf (0-5)
[2023-06-21] MEDS ORDERED: PHENAZOPYRIDIN100 M1 PO (15:51)
[2023-06-21] MEDS ORDERED: MACROBID100 M1 PO (15:51)
[2023-06-21 16:26] VITALS: BP 130/77
== END 2023-06-21 16:26 | disposition home or self-care (01) ==
LOC: ED 13:28
PROVIDERS: Nurse Practitioner
DX: N39.0 Urinary tract infection, site not specified (principal); B95.2 Enterococcus as the cause of diseases classified elsewhere; F41.9 Anxiety disorder, unspecified; F32.A Depression, unspecified; Z87.440 Personal history of urinary (tract) infections

== ENCOUNTER 2024-07-15 05:20 | Inpatient (IN) | payer MEDICARE ==
[~2024-07-15] VITALS: Ht 167.6 cm; Wt 59.0 kg
[2024-07-15] VITALS (37 sets, daily range): BP systolic 98–137; BP diastolic 42–67
[~2024-07-15 05:20] MED LIST changes: +MACROBID100 M1 PO; +PHENAZOPYRIDIN100 M1 PO
[2024-07-15] MEDS ORDERED: SODIUM CHLORIDE 0.9% 1,000 ML IV STA (05:28)
[2024-07-15] MEDS ORDERED: PROMETHAZINE HCL 25 MG/ML AMP IV STA (05:28)
[2024-07-15] MEDS ORDERED: Pantoprazole Sodium 40 MG VIAL (Protonix) IV STA (05:28)
[2024-07-15] MEDS ORDERED: KETOROLAC TROMETHAMINE 30 MG/ML SDV IV ONE ×2 (05:30→13:14)
[2024-07-15] MEDS ORDERED: DIATRIZOATE MEGLUMINE & SODIUM 30 ML/BTL PO ONE (05:30)
[2024-07-15 05:59] LABS: BASO% 0.1 % (0-3); EOS% 0.1 % (0-8); HEMATOCRIT 40.4 % (37.0-47.0); HEMOGLOBIN 13.3 g/dl (12.0-16.0); IMMATURE GRANULOCYTES 0.2 % (0.0-5.0); LYMPH% 4.9 % (15-41); MEAN CELL VOLUME 97.8 fL CALC (80.0-100.0); MEAN CORPUSCULAR HGB 32.2 pG CALC (26.0-32.0); MEAN CORPUSCULAR HGB CONC 32.9 g/dL CAL (32.0-36.0); MONO% 6.4 % (2-13); NEUT# 12.13 thou/uL (2.00-7.15); NEUT% 88.3 % (42-76); RED BLOOD COUNT 4.13 mill/uL (4.20-5.60); RED CELL DISTRI WIDTH 12.7 % (11.5-15.5)
[2024-07-15] MEDS ORDERED: BUPROPION HCL150 MG PO (06:07)
[2024-07-15] MEDS ORDERED: COQ-1030 M1 PO (06:09)
[2024-07-15 06:12] LABS: ALBUMIN 4.3 g/dL (3.2-5.0); CREATININE 0.8 mg/dL (0.5-1.0); POTASSIUM 4.2 mmol/l (3.5-5.1)
[2024-07-15] MEDS ORDERED: LEXAPRO20 MG PO (06:13)
[2024-07-15] MEDS ORDERED: PRAVASTATIN SOD10 MG PO (06:14)
[2024-07-15] MEDS ORDERED: MELATONIN3 M1 PO (06:16)
[2024-07-15] MEDS ORDERED: MORPHINE SULFATE 4 MG/ML VIAL IV ONE (07:25)
[2024-07-15] MEDS ORDERED: PIPERACILLIN Sodium-Tazobactam 3.375 GM in SODIUM CHLORIDE 0.9% 100 ML IV ONE (08:30)
[2024-07-15] MEDS ORDERED: ACETAMINOPHEN 325 MG/TAB PO PRN (08:45)
[2024-07-15] MEDS ORDERED: MELATONIN 3 MG/TAB PO PRN (08:45)
[2024-07-15] MEDS ORDERED: ONDANSETRON 4 MG/TAB ODT SL PRN (08:45)
[2024-07-15] MEDS ORDERED: LACTATED RINGER'S 1,000 ML IV PRN (08:45)
[2024-07-15] MEDS ORDERED: ONDANSETRON HCl 4 MG/2 ML SDV IV PRN (08:45)
[2024-07-15] MEDS ORDERED: HYDROmorphone HCL 2 MG/AMP IV PRN ×2 (08:45→11:55)
[2024-07-15 08:56] LABS: URINE BLOOD DIPSTICK Negative (NEGATIVE); URINE GLUCOSE - DIPSTICK Negative (NEGATIVE); URINE KETONE 40 mg/dL (NEGATIVE); URINE LEUK ESTERASE Negative (NEGATIVE); URINE NITRITE - DIPSTICK Negative (Negative); URINE PROTEIN - DIPSTICK 30 mg/dL (NEG-TRACE); URINE SPECIFIC GRAVITY 1.025; URINE UROBILINOGEN - DIPSTICK 0.2 E.U./dL (0.2)
[2024-07-15 08:58] LABS: URINE COLOR Yellow; URINE EPITHELIAL CELLS MODERATE EPI/hpf (0-FEW); URINE MUCUS MODERATE hpf (NONE-FEW)
[2024-07-15] MEDS ORDERED: LIDOcaine HCl 1% (Local Anesth.) 20 ML VIAL ONE (10:10)
[2024-07-15] MEDS ORDERED: STERILE WATER FOR IRRIGATION 1,000 ML BTL IR ONE (10:10)
[2024-07-15] MEDS ORDERED: SODIUM CHLORIDE 1,000 ML BTL IR ONE (10:10)
[2024-07-15] MEDS ORDERED: LACTATED RINGER'S 1,000 ML IV ONE ×2 (10:21→12:26)
[2024-07-15] MEDS ORDERED: FAMOTIDINE 10MG/ML 2ML SDV IV ONE (10:46)
[2024-07-15] MEDS ORDERED: oxyCODONE 5MG/ ACETAMINOPHEN 325MG TAB PO PRN (11:55)
[2024-07-15] MEDS ORDERED: ONDANSETRON HCl 4 MG/2 ML SDV IV SCH (12:00)
[2024-07-15] MEDS ORDERED: LEVOTHYROXINE SODIUM 50 MCG/TAB PO SCH (13:00)
[2024-07-15] MEDS ORDERED: ESCITALOPRAM 10 MG/TAB PO SCH (13:00)
[2024-07-15] MEDS ORDERED: SUGAMMADEX SODIUM 200 MG/2 ML SDV IV ONE (13:14)
[2024-07-15] MEDS ORDERED: SUCCINYLCHOLINE CHLORIDE 20 MG/ML 10ML VIAL IV ONE (13:14)
[2024-07-15] MEDS ORDERED: ACETAMINOPHEN 1,000 MG/100 ML VIAL IV ONE (13:14)
[2024-07-15] MEDS ORDERED: LACTATED RINGER'S 1,000 ML BAG IV ONE (13:14)
[2024-07-15] MEDS ORDERED: PROPOFOL 200 MG/20 ML VIAL IV ONE (13:14)
[2024-07-15] MEDS ORDERED: ROCURONIUM BROMIDE 10 MG/ML 5ML VIAL IV ONE (13:14)
[2024-07-15] MEDS ORDERED: ONDANSETRON HCl 4 MG/2 ML SDV IV ONE (13:14)
[2024-07-15] MEDS ORDERED: LIDOCAINE HCL 2% 2ML SDV IV ONE (13:14)
[2024-07-15] MEDS ORDERED: PIPERACILLIN Sodium-Tazobactam 3.375 GM in SODIUM CHLORIDE 0.9% 100 ML IV SCH (15:00)
[2024-07-16] VITALS (20 sets, daily range): BP systolic 93–133; BP diastolic 43–113
[2024-07-16 06:45] LABS: BILIRUBIN, TOTAL 0.6 mg/dL (0.02-1.3); CREATININE 0.9 mg/dL (0.5-1.0); MAGNESIUM 2.3 mg/dL (1.6-2.3)
[2024-07-16 06:53] LABS: TOTAL PROTEIN 5.4 g/dL (6.3-8.2)
[2024-07-16 06:58] LABS: BASO% 0.1 % (0-3); IMMATURE GRANULOCYTES 0.2 % (0.0-5.0); LYMPH% 11.3 % (15-41); MEAN CELL VOLUME 99.7 fL CALC (80.0-100.0); MEAN CORPUSCULAR HGB 32.1 pG CALC (26.0-32.0); MEAN CORPUSCULAR HGB CONC 32.2 g/dL CAL (32.0-36.0); MONO% 5.8 % (2-13); NEUT# 8.46 thou/uL (2.00-7.15); NEUT% 82.6 % (42-76); RED BLOOD COUNT 3.21 mill/uL (4.20-5.60); RED CELL DISTRI WIDTH 13.2 % (11.5-15.5)
[2024-07-16 06:59] LABS: HEMOGLOBIN 10.3 g/dl (12.0-16.0)
[2024-07-16] MEDS ORDERED: PATIENT' OWN MED 1 EA DOSE PO SCH (09:00)
[2024-07-16] MEDS ORDERED: DONEPEZIL HCL 5 MG/TAB PO SCH (09:00)
[2024-07-16 22:56] LABS: URINE BILIRUBIN - DIPSTICK Negative (NEGATIVE); URINE BLOOD DIPSTICK Negative (NEGATIVE); URINE GLUCOSE - DIPSTICK Negative (NEGATIVE); URINE KETONE Negative (NEGATIVE); URINE LEUK ESTERASE Negative (NEGATIVE); URINE NITRITE - DIPSTICK Negative (Negative); URINE PROTEIN - DIPSTICK Trace mg/dL (NEG-TRACE)
[2024-07-16 23:01] LABS: URINE COLOR Yellow
[2024-07-17 00:57] VITALS: BP 111/43
[2024-07-17 06:44] VITALS: BP 140/72
[2024-07-17 07:10] LABS: BASO% 0.2 % (0-3); EOS% 0.7 % (0-8); HEMATOCRIT 33.9 % (37.0-47.0); HEMOGLOBIN 11.1 g/dl (12.0-16.0); IMMATURE GRANULOCYTES 0.3 % (0.0-5.0); MEAN CELL VOLUME 99.4 fL CALC (80.0-100.0); MEAN CORPUSCULAR HGB 32.6 pG CALC (26.0-32.0); MEAN CORPUSCULAR HGB CONC 32.7 g/dL CAL (32.0-36.0); MONO% 6.4 % (2-13); NEUT# 8.13 thou/uL (2.00-7.15); NEUT% 79.4 % (42-76); RED BLOOD COUNT 3.41 mill/uL (4.20-5.60)
[2024-07-17 07:20] LABS: ALBUMIN 3.2 g/dL (3.2-5.0); BILIRUBIN, TOTAL 0.6 mg/dL (0.02-1.3); CREATININE 0.8 mg/dL (0.5-1.0); POTASSIUM 3.7 mmol/l (3.5-5.1); TOTAL PROTEIN 5.7 g/dL (6.3-8.2)
[2024-07-17 11:59] VITALS: BP 117/60
[2024-07-17] MEDS ORDERED: METRONIDAZOLE500 MG PO (13:13)
[2024-07-17] MEDS ORDERED: CIPROFLOXACN500 MG PO (13:13)
[2024-07-17] MEDS ORDERED: PERCOCET 5/325M1 TAB PO (13:14)
== END 2024-07-17 14:22 | disposition home health service (06) | DRG 399 ==
LOC: ED 05:20 → ED-I 08:20 → ED 08:31 → ICU 08:32 → MS2 07-16 17:49
PROVIDERS: Family Medicine; Internal Medicine; ADMIT Internal Medicine; ATTEND Internal Medicine
PROC: 0DTJ4ZZ Resection of Appendix, Percutaneous Endoscopic Approach (ICD-10-PCS; principal; 2024-07-15)
DX: K35.30 Acute appendicitis with localized peritonitis, without perforation or gangrene (principal); I10 Essential (primary) hypertension; E03.9 Hypothyroidism, unspecified; F03.90 Unspecified dementia, unspecified severity, without behavioral disturbance, psychotic disturbance, mood disturbance, and anxiety; F41.9 Anxiety disorder, unspecified; F32.A Depression, unspecified; Z87.440 Personal history of urinary (tract) infections; Z85.3 Personal history of malignant neoplasm of breast; Z90.10 Acquired absence of unspecified breast and nipple; Z90.49 Acquired absence of other specified parts of digestive tract; Z20.822 Contact with and (suspected) exposure to COVID-19
CPT/HCPCS: J0131; J1100; J1171; J2405; J2470; J2543; J2550; Q9967

== ENCOUNTER 2024-07-18 14:13 | Emergency (ER) | payer MEDICARE ==
[2024-07-18] VITALS (23 sets, daily range): BP systolic 107–141; BP diastolic 58–82
[~2024-07-18] VITALS: Ht 167.6 cm; Wt 72.5 kg
[~2024-07-18 14:13] MED LIST changes: +COQ-1030 M1 PO; +LEXAPRO20 MG PO; +MELATONIN3 M1 PO; +METRONIDAZOLE500 MG PO; +PERCOCET 5/325M1 TAB PO; +PRAVASTATIN SOD10 MG PO
[2024-07-18] MEDS ORDERED: AZITHROMYCIN 500 MG in SODIUM CHLORIDE 0.9% 500 ML IV ONE (14:25)
[2024-07-18] MEDS ORDERED: cefTRIAXone SODIUM 2 GM in SODIUM CHLORIDE 0.9% 100 ML IV ONE (14:25)
[2024-07-18] MEDS ORDERED: IPRATROPIUM-Albuterol 0.5MG-2.5MG/3 ML NEB ONE ×2 (14:30)
[2024-07-18] MEDS ORDERED: SODIUM CHLORIDE 0.9% 1,000 ML IV ONE (14:49)
[2024-07-18 15:08] LABS: BASO% 0.1 % (0-3); HEMATOCRIT 33.6 % (37.0-47.0); HEMOGLOBIN 10.6 g/dl (12.0-16.0); IMMATURE GRANULOCYTES 0.7 % (0.0-5.0); LYMPH% 5.2 % (15-41); MEAN CELL VOLUME 101.2 fL CALC (80.0-100.0); MEAN CORPUSCULAR HGB 31.9 pG CALC (26.0-32.0); MEAN CORPUSCULAR HGB CONC 31.5 g/dL CAL (32.0-36.0); MONO% 5.6 % (2-13); NEUT# 9.31 thou/uL (2.00-7.15); NEUT% 88.4 % (42-76); RED BLOOD COUNT 3.32 mill/uL (4.20-5.60); RED CELL DISTRI WIDTH 13.5 % (11.5-15.5)
[2024-07-18 15:25] LABS: ALBUMIN 3.5 g/dL (3.2-5.0); CREATININE 0.7 mg/dL (0.5-1.0); POTASSIUM 3.7 mmol/l (3.5-5.1); TOTAL PROTEIN 6.3 g/dL (6.3-8.2)
[2024-07-18] MEDS ORDERED: OSELTAMIVIR PHOSPHATE 75 MG/TAB CAP PO ONE (15:35)
[2024-07-18] MEDS ORDERED: ASPIRIN 81 MG/TAB PO ONE (15:45)
[2024-07-18] MEDS ORDERED: ENOXAPARIN SODIUM 100 MG/ML SYR SC ONE (15:45)
[2024-07-18] MEDS ORDERED: FUROSEMIDE 40 MG/4 ML SDV IV ONE (18:05)
== END 2024-07-18 20:00 ==
LOC: ED 14:13
PROVIDERS: Family Medicine
DX: I21.4 Non-ST elevation (NSTEMI) myocardial infarction (principal); I50.9 Heart failure, unspecified; J10.00 Influenza due to other identified influenza virus with unspecified type of pneumonia; F41.9 Anxiety disorder, unspecified; F32.A Depression, unspecified; Z87.440 Personal history of urinary (tract) infections; Z90.49 Acquired absence of other specified parts of digestive tract; Z85.3 Personal history of malignant neoplasm of breast; Z20.822 Contact with and (suspected) exposure to COVID-19
CPT/HCPCS: J0456; J0696; J1650; J1940; Q9967